=== PATIENT | female | born 1980 | race Caucasian/White ===

== ENCOUNTER 2016-05-11 18:15 | Emergency (ER) | payer OTHER ==
--- NOTE | 2016-05-11 19:19 | ERNOTE ---
<Iain Cody - Last Filed: 05/11/16 20:07> Lower Extremity HPI - Narrative Date of Service: 05/11/16 - General Lower Extremities Pain: thigh: right - inner thigh pain Time Seen by Provider: 05/11/16 19:03 Source: patient - Immun/Allergies/Home Medications Immunizations: IMMUNIZATION HX Immunizations Up to Date Yes History of Influenza Vaccine Yes Hx Pneumococcal Vaccination No Allergies/Adverse Reactions: Allergies Allergy/AdvReac Type Severity Reaction Status Date / Time latex Allergy Intermediate Hives Verified 05/11/16 18:27 oxycodone HCl [From Percocet] AdvReac Intermediate Vomiting Verified 05/11/16 18 :27 sulfamethoxazole AdvReac Hives Verified 05/11/16 18:27 [From Bactrim] trimethoprim [From Bactrim] AdvReac Hives Verified 05/11/16 18:27 Home Medications: HOME MEDICATIONS Citalopram Hydrobromide [Citalopram HBr] 20 mg PO DAILY 05/11/16 [Last Taken Unknown] Clindamycin HCl [Cleocin HCl] 300 mg PO TID #30 capsule 05/11/16 [Last Taken Unknown] HYDROcodone/ACETAMINOPHEN [[place] 5-325] 1 - 2 tab PO Q6H PRN #12 tab 05/11/16 [ Last Taken Unknown] Hydroxyzine HCl 50 mg PO DAILY 05/11/16 [Last Taken Unknown] Ibuprofen [Motrin] 800 mg PO TID PRN #30 tab 05/11/16 [Last Taken Unknown] - History of Present Illness Narrative: Presents with c/o pain to her right medial thigh. Pain exacerbated by ambulation. Denies any recent injury. Pt also c/o of a small cyst on anterior aspect of her neck. 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 Occurred: other - None Associated Symptoms: Reports: none. Denies: snapping, popping sensation, dizzy/ light headedness, headache, weakness, sensory loss, chest pain, vomiting/ diarrhea, bowel/bladder problems Other Injuries: Reports: none Review of Systems - Review of Systems Constitutional: Present: no symptoms reported EYE: Present: no symptoms reported ENT: Present: no symptoms reported Respiratory: Present: no symptoms reported Cardiology: Present: no symptoms reported Gastrointestinal/Abdominal: Present: no symptoms reported Genitourinary: Present: no symptoms reported Musculoskeletal: Present: See HPI Skin: Present: See HPI Neurological: Present: no symptoms reported Endocrine: Present: no symptoms reported Hematologic/Lymphatic: Present: no symptoms reported Psych: Present: no symptoms reported All Other Systems: All systems neg except as marked - Patient's Past Medical History Patient History - Medical: No pertinent hx, Kidney stone Patient History - Cardiac/Respiratory: No pertinent hx Patient History - Cancer: No Hx of Cancer Patient History - Surgical Procedures: Tubal Ligation, Other Patient History - Other: None LMP (Calendar): 11/13/15 - Family History Father Family History - Medical: , No pertinent hx - Social History Living Situations: home Abuse History: No History of abuse Psych History: No pertinent hx Does anyone smoke in the home?: Yes Smoking Status: Current every day smoker Patient requests Smoking Cessation Consult: No Initiate information on Smoking Cessation: No Alcohol Use: none Drug Use: none - Immunizations Immunizations Up to Date: Yes Hx Pneumococcal Vaccination: No History of Influenza Vaccine: Yes Physical Exam - Physical Exam General Appearance: Present: wd/wn, alert, no apparent distress Ears, Nose, Throat: Present: normal ENT inspection Neck: Present: normal inspection, nontender, other - Small (1 cm diameter) dermal inclusion cyst on superior/anterior aspect of her neck. TTP; no erythema , not fluctuant. . Absent: lymphadenopathy (R), lymphadenopathy (L) Respiratory: Present: no respiratory distress, normal breath sounds, no accessory muscle use, chest nontender, lungs clear Cardiovascular/Chest: Present: regular rate, rhythm, no murmur Extremity Exam: Present: normal except -, other - TTP of medial aspect of right thigh, extending towards her groin. Pain elicited with ROM of right hip. Neurological Exam: Present: alert, oriented, normal mood/affect Skin Exam: Present: normal color, warm/dry, other - Inclusion cyst on anterior neck. ED Progress - Results and Orders Patient's Lab Results:: I have reviewed the patient's lab results. - Vital Signs Patient's Vital Signs:: I have reviewed the patient's vital signs. Vital Signs: Vital Signs 05/11/16 18:23 Temperature 37 C Pulse Rate 88 Respiratory 18 Rate Blood Pressure 142/88 O2 Sat by Pulse 98 Oximetry - Progress/Reassessment Chief Complaint: Lower Extremity Pain/ Injury - Transfer of Care Physician Sign Out: Iain Cody Receiving Physician: Ira Zhu Pending Results: Labs Expected Disposition: Discharge Departure Clinical Impression: EIC (epidermal inclusion cyst) Cellulitis Qualifiers: Site of cellulitis: neck Qualified Code(s): L03.221 - Cellulitis of neck - Departure Disposition: Home self-care Condition: Good Prescriptions: Clindamycin HCl [Cleocin HCl] 300 mg PO TID #30 capsule HYDROcodone/ACETAMINOPHEN [[place] 5-325] 1 - 2 tab PO Q6H PRN #12 tab PRN Reason: Pain Ibuprofen [Motrin] 800 mg PO TID PRN #30 tab PRN Reason: Pain <Ira Zhu - Last Filed: 05/11/16 21:02> Lower Extremity HPI - Immun/Allergies/Home Medications Immunizations: IMMUNIZATION HX Immunizations Up to Date Yes History of Influenza Vaccine Yes Hx Pneumococcal Vaccination No - Family History Father Family History - Medical: , No pertinent hx ED Progress - Date and Time Seen: Date and Time: 05/11/16 20:51 By the time I arrived to patient's bedside, she had already been seen by previous provider. patient was upset in the exam room as she had not been given any pain medication. I evaluated the patient and based on my exam the patient has a right groin pull. she was also complaining of pain in the area under her chin. She stated "I've had MRSA and it's starting under my chin again". By my exam she does have a firm, tender nodule in the submental region with a skin lesion with a scab in that same corresponding region. Area is not red or hot but there is a nodule and it is tender and the patient does have a history of MRSA. - Vital Signs Vital Signs: Vital Signs 05/11/16 05/11/16 05/11/16 18:23 19:28 20:23 Temperature 37 C 37.2 C Pulse Rate 88 73 76 Respiratory 18 18 18 Rate Blood Pressure 142/88 102/60 100/61 O2 Sat by Pulse 98 96 94 Oximetry Plan - Plan Plan: will treat for right groin pull and for MRSA cellulitis of submental area
--- OUTSIDE RECORDS SUMMARY | 2016-05-11 19:29 | XMS REPORT | Continuity of Care Document ---
:1980 Author Organization [facility] ([facility]) Address [address] [place] [address] Phone [phone] Care Team Providers Name Role Phone Lavell Quevedo Primary Care Provider [phone] Source Comments This disclosure is being made pursuant to the Care Everywhere program, applicable federal and state laws, and may not contain all informaitonavailable regarding this patient.[facility] ([facility]) Active Allergies and Adverse Reactions Allergen Noted Date Severity Reactions Comments Latex, Natural Rubber Respiratory Distress,Urticaria (Hives),Angioedema Current Medications Prescription Sig. Disp. Refills Start Date End Date Status ibuprofen 800 mg tablet Take 800 mg by mouth Active every 8 hours as needed for Pain. Active Problems Not on file Social History Tobacco Use Types Packs/Day Years Used Date Current Every Day Smoker Cigarettes 1 10 Smokeless Tobacco: Never Used Tobacco Cessation:Ready to Quit: Yes; Counseling Given: Yes Comments: Alcohol Use Drinks/Week oz/Week Comments No Last Filed Vital Signs Vital Sign Reading Time Taken Blood Pressure 108/60 08/01/2015 1:05 PM CDT Pulse 67 08/01/2015 1:05 PM CDT Temperature 36.8 C (98.2 F) 08/01/2015 1:05 PM CDT Respiratory Rate - - Height 1.702 m (5' 7") 08/01/2015 1:05 PM CDT Weight 80.85 kg (178 lb 3.9 oz) 08/01/2015 1:05 PM CDT Body Mass Index 27.91 08/01/2015 1:05 PM CDT Oxygen Saturation - - Plan of Care Health Maintenance Due Date Last Done Comments Hepatitis B Vaccine (1 of 3 - Primary Series) 1980 Tdap Vaccine 08/08/1991 Lipid Disorder Screening 1998 MMR Vaccine 1998 Td Vaccine 1998 Varicella Vaccine (1 of 2 - Adult - No Evidence of 1998 Immunity) Pneumococcal Vaccine (1 of 1 - PPSV23) 08/08/1999 Cervical Cancer Screening 2010 Influenza Vaccine: Seasonal (#1) 09/26/2015 Results from Last 3 Months Not on file
[2016-05-11 19:31] LABS: Hematocrit 39.7 % (37.0-47.0); Hemoglobin 13.4 gm/dL (12.5-16.0); Mean Cell Volume 83.4 fl (78-100); Mean Corpuscular Hemoglobin 28.2 pg (27-31); Mean Corpuscular Hgb Conc 33.8 g/dl (32-36); Mean Platelet Volume 11.3 fl (6.0-9.5); Neutrophil # 4.1 K/mm3 (1.3-6.0); Neutrophil % 67.3 % (42-75.0); Platelet Count 196 K/mm3 (150-450); Red Blood Count 4.76 M/mm3 (4.2-5.4); Red Cell Distribution Width 12.9 % (11.5-14.0); White Blood Count 6.1 K/mm3 (4.0-10.5)
[2016-05-11 19:42] LABS: Albumin * 3.7 gm/dl (3.4-5.0); Anion Gap 14.9 mmol/L (6.8-13.8); BUN/Creatinine Ratio 12.1 (9.0-21.6); Bilirubin, Total 0.3 mg/dL (0.0-1.1); Ca. Corrected For Albumin 8.7 mg/dL (8.4-10.2); Calcium * 8.8 mg/dL (7.9-10.9); Carbon Dioxide 25.1 mmol/L (24-32.6); Total Protein 7.2 gm/dL (6.2-8.2)
[2016-05-11 20:23] VITALS: BP 100/61
[2016-05-11] MEDS ORDERED: KETOROLAC TROMETHAMINE 60 MG/2 ML VIAL IM ONE ×2 (20:48)
[2016-05-11] MEDS ORDERED: CLINDAMYCIN HCL 150 MG CAPSULE PO ONE (20:49)
[2016-05-11] MEDS ORDERED: CLINDAMYCIN HCL 150 MG CAPSULE ONE (20:50)
== END 2016-05-11 21:05 | disposition home or self-care (01) ==
LOC: ER 18:15
DX: L72.0 Epidermal cyst (principal); L03.221 Cellulitis of neck; Z72.0 Tobacco use

== ENCOUNTER 2016-06-09 16:56 | Emergency (ER) | payer OTHER ==
[2016-06-09 17:06] VITALS: BP 161/93
[2016-06-09] MEDS ORDERED: KETOROLAC TROMETHAMINE 60 MG/2 ML VIAL IM ONE ×2 (17:24→17:33)
--- OUTSIDE RECORDS SUMMARY | 2016-06-09 17:33 | XMS REPORT | Continuity of Care Document ---
:1980 Author Organization [facility] ([facility]) Address [address] [place] [address] Phone [phone] Care Team Providers Name Role Phone Lavell Quevedo Primary Care Provider [phone] Source Comments This disclosure is being made pursuant to the Care Everywhere program, applicable federal and state laws, and may not contain all informaitonavailable regarding this patient.[facility] ([facility]) Active Allergies and Adverse Reactions Allergen Noted [...]
--- NOTE | 2016-06-09 17:38 | ERNOTE ---
Lower Extremity HPI - Narrative Date of Service: 06/09/16 - General Lower Extremities Pain: other: right - Groin Time Seen by Provider: 06/09/16 17:15 Source: patient, old records, other - [facility] database Exam Limitations: no limitations - Immun/Allergies/Home Medications Immunizations: IMMUNIZATION HX Immunizations Up to Date Yes History of Influenza Vaccine No Hx Pneumococcal Vaccination No Allergies/Adverse Reactions: Allergies Allergy/AdvReac Type Severity Reaction Status Date / Time latex Allergy Intermediate Hives Verified 06/09/16 17:07 oxycodone HCl [From Percocet] AdvReac Intermediate Vomiting Verified 06/09/16 17 :07 sulfamethoxazole AdvReac Hives Verified 06/09/16 17:07 [From Bactrim] trimethoprim [From Bactrim] AdvReac Hives Verified 06/09/16 17:07 Home Medications: HOME MEDICATIONS Hydroxyzine HCl 50 mg PO DAILY 05/11/16 [Last Taken Unknown] Doxycycline Hyclate [Morgidox] 100 mg PO BID 06/09/16 [Last Taken Unknown] Ibuprofen 800 mg PO TID PRN #60 tablet 06/09/16 [Last Taken Unknown] - History of Present Illness Narrative: 35 y/o female ambulatory to the ED for pain in her right groin. This began over a year ago, but was exacerbated today when she was running from a snake. She has been here several times for this. She reports having an ultrasound recently at [facility] that showed a fluid collection in her groin. She is scheduled to see Dr. Kearns for this in 2 weeks. She has already seen several different specialists who seem to have told her that the fluid should reabsorb and not require surgical intervention. She reports that she is usually "pretty much on bedrest" because of this ongoing issue, but was out mushroom hunting today. Subsequent Symptoms: Denies: sensory loss, numbness, motor loss Prior Treament: Reports: similar symptoms before Review of Systems - Review of Systems Constitutional: Absent: recent illness, fever, chills EYE: Present: no symptoms reported ENT: Present: no symptoms reported Respiratory: Present: no symptoms reported Cardiology: Absent: chest pain, edema, claudication Gastrointestinal/Abdominal: Present: no symptoms reported Genitourinary: Present: no symptoms reported Musculoskeletal: Present: muscle pain. Absent: joint pain, joint swelling Skin: Absent: rash, lesions, lumps, change in color Neurological: Present: tingling. Absent: weakness, numbness Endocrine: Present: no symptoms reported Hematologic/Lymphatic: Present: no symptoms reported Psych: Present: no symptoms reported - Patient's Past Medical History Patient History - Medical: Anxiety, Kidney stone, Migraines Patient History - Cardiac/Respiratory: No pertinent hx Patient History - Cancer: No Hx of Cancer Patient History - Surgical Procedures: Tubal Ligation Patient History - Other: None - Family History Father Family History - Medical: , No pertinent hx - Social History Living Situations: home Abuse History: No History of abuse Psych History: No pertinent hx Does anyone smoke in the home?: Yes Smoking Status: Current every day smoker Have you smoked in the past 12 months: Yes Alcohol Use: occasionally Drug Use: none - Immunizations Immunizations Up to Date: Yes Hx Pneumococcal Vaccination: No History of Influenza Vaccine: No Physical Exam - Physical Exam General Appearance: Present: wd/wn, alert, no apparent distress, obese Respiratory: Present: no respiratory distress, no accessory muscle use Cardiovascular/Chest: Present: normal peripheral pulses Peripheral Pulses: N=norm/S=strong/W=weak/B=bound/A=absent: Dorsalis-pedis (R): Strong Extremity Exam: Present: no edema, decreased range of motion - right hip - painful, other - tenderness with palpation of right anterior groin. Absent: calf tenderness, bony tenderness Neurological Exam: Present: alert, oriented, normal mood/affect, no motor/ sensory deficits Skin Exam: Present: normal color, warm/dry, other - no palpable mass in right groin ED Progress - Vital Signs Patient's Vital Signs:: I have reviewed the patient's vital signs. Vital Signs: Vital Signs 06/09/16 17:01 Temperature 36.7 C Pulse Rate 87 Respiratory 16 Rate Blood Pressure 161/93 O2 Sat by Pulse 99 Oximetry - Progress/Reassessment Chief Complaint: Lower Extremity Pain/ Injury Progress:: Improved Departure Clinical Impression: Strain of groin Qualifiers: Encounter type: initial encounter Laterality: right Qualified Code(s): S76.211A - Strain of adductor muscle, fascia and tendon of right thigh, initial encounter - Departure Disposition: Home Follow Up Needed Condition: Stable Instructions: Muscle Strain, [id number] Additional Instructions: Ice to sore area as needed Take ibuprofen with food See Dr. De La Cruz as scheduled Prescriptions: Ibuprofen 800 mg PO TID PRN #60 tablet PRN Reason: Pain
== END 2016-06-09 17:45 | disposition home or self-care (01) ==
LOC: ER 16:56
DX: S76.211A Strain of adductor muscle, fascia and tendon of right thigh, initial encounter (principal); X58.XXXA Exposure to other specified factors, initial encounter; Y93.89 Activity, other specified; Y92.9 Unspecified place or not applicable; Y99.8 Other external cause status; Z72.0 Tobacco use

== ENCOUNTER 2016-06-16 19:24 | Emergency (ER) | payer OTHER ==
--- OUTSIDE RECORDS SUMMARY | 2016-06-16 22:10 | XMS REPORT | Continuity of Care Document ---
:1980 Author Organization [facility] ([facility]) Address [address] [place] [address] Phone [phone] Care Team Providers Name Role Phone Laevll Quveedo Primary Care Provider [phone] Source Comments This disclosure is being made pursuant to the Care Everywhere program, applicable federal and state laws, and may not contain all informaitonavailable regarding this patient.[facility] ([facility]) Active Allergies and Adverse Reactions Allergen [...]
[2016-06-16] MEDS ORDERED: IBUPROFEN 400 MG TABLET PO ONE (22:12)
[2016-06-16] MEDS ORDERED: diphenhydrAMINE HCL 50 MG/ML VIAL IM ONE (22:13)
[2016-06-16] MEDS ORDERED: diphenhydrAMINE HCL 50 MG/ML VIAL ONE (22:17)
[2016-06-16] MEDS ORDERED: IBUPROFEN 400 MG TABLET ONE (22:17)
--- NOTE | 2016-06-16 22:19 | ERNOTE ---
Lower Extremity HPI - General Lower Extremities Pain: hip: right Time Seen by Provider: 06/16/16 22:04 Source: patient Exam Limitations: no limitations - Immun/Allergies/Home Medications Immunizations: IMMUNIZATION HX Immunizations Up to Date Yes History of Influenza Vaccine No Hx Pneumococcal Vaccination No Allergies/Adverse Reactions: Allergies Allergy/AdvReac Type Severity Reaction Status Date / Time latex Allergy Intermediate Hives Verified 06/09/16 17:07 oxycodone HCl [From Percocet] AdvReac Intermediate Vomiting Verified 06/09/16 17 :07 ketorolac [From Toradol] AdvReac Vomiting Verified 06/16/16 19:49 sulfamethoxazole AdvReac Hives Verified 06/09/16 17:07 [From Bactrim] trimethoprim [From Bactrim] AdvReac Hives Verified 06/09/16 17:07 Home Medications: HOME MEDICATIONS Hydroxyzine HCl 50 mg PO DAILY 05/11/16 [Last Taken Unknown] Doxycycline Hyclate [Morgidox] 100 mg PO BID 06/09/16 [Last Taken Unknown] Ibuprofen 800 mg PO TID PRN #60 tablet 06/09/16 [Last Taken Unknown] - History of Present Illness Narrative: Patient has had recurrent problems with her right groin for about a year.She has seen multiple specialist and 'they won't do anything'. A CT about a year ago showed a lesion inher groin. She has an MRI ordered for Saturday (two days). About three hours ago while getting out of her truck she started to have worse pain again and is worries that she won't be able to sleep to night because of the pain. She is taking ibuprofen 800mg for it last dose this morning Review of Systems - Review of Systems Constitutional: Absent: recent illness, fever ENT: Absent: nose pain, nose congestion Respiratory: Absent: shortness of breath Cardiology: Absent: chest pain Gastrointestinal/Abdominal: Absent: nausea, vomiting Musculoskeletal: Present: See HPI Neurological: Absent: weakness, numbness - Patient's Past Medical History Patient History - Medical: Anxiety, Kidney stone, Migraines Patient History - Cardiac/Respiratory: No pertinent hx Patient History - Cancer: No Hx of Cancer Patient History - Surgical Procedures: Tubal Ligation Patient History - Other: None - Family History Father Family History - Medical: , No pertinent hx - Social History Living Situations: home Abuse History: No History of abuse Psych History: Hx of Anxiety Does anyone smoke in the home?: Yes Smoking Status: Current every day smoker Have you smoked in the past 12 months: Yes Alcohol Use: occasionally Drug Use: none - Immunizations Immunizations Up to Date: Yes Hx Pneumococcal Vaccination: No History of Influenza Vaccine: No Physical Exam - Physical Exam General Appearance: Present: wd/wn, alert, mild distress Respiratory: Present: no respiratory distress, normal breath sounds Cardiovascular/Chest: Present: regular rate, rhythm, no murmur Extremity Exam: Present: other - right groin tender medially over femoral artery and vein, pain on rotation of hip Neurological Exam: Present: alert, oriented, normal mood/affect, no motor/ sensory deficits Skin Exam: Present: normal color, warm/dry ED Progress - Vital Signs Patient's Vital Signs:: I have reviewed the patient's vital signs. Vital Signs: Vital Signs 06/16/16 19:50 Temperature 36.7 C Pulse Rate 103 H Respiratory 16 Rate Blood Pressure 114/67 O2 Sat by Pulse 97 Oximetry - Progress/Reassessment Chief Complaint: Lower Extremity Pain/ Injury Progress Note-Subjective: 06/16/16 22:16 discussed plan, patient is essentially here for pain medication, offered toradol , patient states that she can't tolerate it, explained that I can't give her narcotic medications for chronic pain. Since her concern was sleeping will treat with po ibuprofen (last dose this am) and IM benadryl Departure Clinical Impression: Groin pain, chronic, right - Departure Disposition: Home self-care Condition: Good Instructions: Adductor Muscle Strain Additional Instructions: take ibuprofen as scheduled, follow up for your MRI as scheduled on Saturday Referrals: Dillon Kearns MD [Primary Care Provider] -
[2016-06-16 22:29] VITALS: BP 110/62
== END 2016-06-16 22:27 | disposition home or self-care (01) ==
LOC: ER 19:24
DX: R10.31 Right lower quadrant pain (principal); G89.29 Other chronic pain; Z87.442 Personal history of urinary calculi; F17.210 Nicotine dependence, cigarettes, uncomplicated

== ENCOUNTER 2016-07-08 19:13 | Emergency (ER) | payer OTHER ==
[2016-07-08 19:21] VITALS: BP 142/98
[2016-07-08] MEDS ORDERED: CYCLOBENZAPRINE HCL 10 MG TABLET PO ONE (20:02)
[2016-07-08] MEDS ORDERED: CYCLOBENZAPRINE HCL 10 MG TABLET ONE ×2 (20:07→20:09)
--- OUTSIDE RECORDS SUMMARY | 2016-07-08 20:08 | XMS REPORT | Continuity of Care Document ---
:1980 Author Organization [facility] ([facility]) Address [address] [place] [address] Phone [phone] Care Team Providers Name Role Phone Lavell Quevedo Primary Care Provider [phone] Source Comments This disclosure is being made pursuant to the Care Everywhere program, applicable federal and state laws, and may not contain all informaitonavailable regarding this patient.[facility] ([facility]) Active Allergies and Adverse Reactions Allergen Noted [...]
--- NOTE | 2016-07-08 20:26 | ERNOTE ---
Back Pain ER HPI Date of Service: 07/08/16 Presenting Symptoms: injury/pain to back Time Seen by Provider: 07/08/16 19:52 Source: patient, RN notes reviewed, past records, other - [facility] database Exam Limitations: no limitations Immunizations: IMMUNIZATION HX Immunizations Up to Date Yes History of Influenza Vaccine Yes Hx Pneumococcal Vaccination Yes Allergies/Adverse Reactions: Allergies latex Allergy (Intermediate, Verified 07/08/16 19:22) Hives oxycodone HCl [From Percocet] Adverse Reaction (Intermediate, Verified 07/08/16 19:22) Vomiting ketorolac [From Toradol] Adverse Reaction (Verified 07/08/16 19:22) Vomiting sulfamethoxazole [From Bactrim] Adverse Reaction (Verified 07/08/16 19:22) Hives trimethoprim [From Bactrim] Adverse Reaction (Verified 07/08/16 19:22) Hives Home Medications: HOME MEDICATIONS Hydroxyzine HCl 50 mg PO DAILY 05/11/16 [Last Taken Unknown] Doxycycline Hyclate [Morgidox] 100 mg PO BID 06/09/16 [Last Taken Unknown] Ibuprofen 800 mg PO TID PRN #60 tablet 06/09/16 [Last Taken Unknown] Cyclobenzaprine HCl [Flexeril] 10 mg PO TID PRN #16 tab 07/08/16 [Last Taken Unknown] Lurasidone HCl [Latuda] 20 mg PO DAILY 07/08/16 [Last Taken Unknown] Narrative: 35 y/o female brought to the ED by her for pain in her coccyx that was present on awakening today. She denies any injury. She has taken ibuprofen for pain without improvement. She reports that her pain is so severe that she cannot do anything - but then states that she is bedridden due to her chronic pain anyway. She was seen here twice in the past month for chronic pain related to a mass in her groin. On review of her pharmacy records, she was then seen at [facility] 2 days later and received [place]. Date (Duration): 07/08/16 Location of pain: Reports: lower back, no radiation Activities at Onset: Reports: sleep Recent Injury?: Reports: no Modifying Factors - (Improves): Reports: nothing Modifying Factors - (Worsens): Reports: upright position Associated Symptoms: Reports: difficulty walking. Denies: fever/chills, sweating, constipation/incontinence, nausea/vomiting, problems urinating, numbess/weakness in legs Prior Treament: Reports: recently seen, similar symptoms before Review of Systems - Review of Systems Constitutional: Absent: fever, chills EYE: Present: no symptoms reported ENT: Present: no symptoms reported Respiratory: Absent: shortness of breath, cough Cardiology: Absent: chest pain, edema Gastrointestinal/Abdominal: Absent: nausea, abdominal pain Genitourinary: Absent: dysuria, hematuria Musculoskeletal: Present: back pain, muscle pain, muscle stiffness, joint pain Skin: Absent: rash, lesions, lumps Neurological: Absent: weakness, numbness, tingling Endocrine: Present: no symptoms reported Hematologic/Lymphatic: Present: no symptoms reported Psych: Present: no symptoms reported - Patient's Past Medical History Patient History - Medical: Anxiety, Kidney stone, Migraines Patient History - Cardiac/Respiratory: No pertinent hx Patient History - Cancer: No Hx of Cancer Patient History - Surgical Procedures: Tubal Ligation Patient History - Other: None LMP (females 10-50): tubal - Family History Father Family History - Medical: , No pertinent hx - Social History Living Situations: home Abuse History: Hx of Substance Use Psych History: Hx of Anxiety Does anyone smoke in the home?: Yes Smoking Status: Current every day smoker Alcohol Use: occasionally Drug Use: none - Immunizations Immunizations Up to Date: Yes Hx Pneumococcal Vaccination: Yes History of Influenza Vaccine: Yes Physical Exam - Physical Exam General Appearance: Present: wd/wn, alert, no apparent distress, other - disheveled, appears older than reported age Neck: Present: normal inspection, nontender, supple Respiratory: Present: no respiratory distress, normal breath sounds, no accessory muscle use, lungs clear Cardiovascular/Chest: Present: regular rate, rhythm, no murmur, normal peripheral pulses Back Exam: Present: no CVA tenderness, other - winces and jumps with light palpation of any part of sacral/coccyx region. Absent: muscle spasm Extremity Exam: Present: normal inspection, normal range of motion, no edema, other - normal strength against resistance in lower extremities, dorsiflexes great toes Neurological Exam: Present: alert, oriented, normal mood/affect, no motor/ sensory deficits Skin Exam: Present: normal color, warm/dry ED Progress - Vital Signs Patient's Vital Signs:: I have reviewed the patient's vital signs. Vital Signs: Vital Signs 07/08/16 19:14 Temperature 36.8 C Pulse Rate 90 Respiratory 14 Rate Blood Pressure 142/98 O2 Sat by Pulse 98 Oximetry - Progress/Reassessment Chief Complaint: Back Pain Progress:: Unchanged Departure Clinical Impression: Coccyalgia - Departure Disposition: Home Follow Up Needed Condition: Stable Instructions: Back Pain, Adult, [id number] Additional Instructions: Continue ibuprofen Follow up with your doctor as needed Prescriptions: Cyclobenzaprine HCl [Flexeril] 10 mg PO TID PRN #16 tab PRN Reason: MUSCLE SPASMS
== END 2016-07-08 20:12 | disposition home or self-care (01) ==
LOC: ER 19:13
DX: M53.3 Sacrococcygeal disorders, not elsewhere classified (principal); Z72.0 Tobacco use; F41.9 Anxiety disorder, unspecified

== ENCOUNTER 2016-08-16 20:12 | Emergency (ER) | payer OTHER ==
[2016-08-16] MEDS ORDERED: ONDANSETRON HCL/PF 2 MG/ML VIAL IV ONE (20:29)
[2016-08-16] MEDS ORDERED: NORMAL SALINE 2,000 ML IV ONE (20:29)
[2016-08-16] MEDS ORDERED: ONDANSETRON HCL/PF 2 MG/ML VIAL ONE (20:30)
--- NOTE | 2016-08-16 20:38 | ERNOTE ---
Medical Problem HPI - Narrative Date of Service: 08/16/16 - General Chief Complaint: Nausea/Vomiting Time Seen by Provider: 08/16/16 20:25 Source: patient Exam Limitations: no limitations - Immun/Allergies/Home Medications Immunizations: IMMUNIZATION HX Immunizations Up to Date Yes History of Influenza Vaccine Yes Hx Pneumococcal Vaccination Yes Allergies/Adverse Reactions: Allergies latex Allergy (Intermediate, Verified 08/16/16 20:21) Hives oxycodone HCl [From Percocet] Adverse Reaction (Intermediate, Verified 08/16/16 20:21) Vomiting ketorolac [From Toradol] Adverse Reaction (Verified 08/16/16 20:21) Vomiting sulfamethoxazole [From Bactrim] Adverse Reaction (Verified 08/16/16 20:21) Hives trimethoprim [From Bactrim] Adverse Reaction (Verified 08/16/16 20:21) Hives Home Medications: HOME MEDICATIONS Hydroxyzine HCl 50 mg PO PRN 05/11/16 [Last Taken Unknown] Doxycycline Hyclate [Morgidox] 100 mg PO BID 06/09/16 [Last Taken Unknown] Ibuprofen 800 mg PO TID PRN #60 tablet 06/09/16 [Last Taken Unknown] Lurasidone HCl [Latuda] 40 mg PO DAILY 07/08/16 [Last Taken Unknown] Omeprazole 40 mg PO DAILY 08/16/16 [Last Taken Unknown] Ondansetron HCl [Zofran] 4 mg PO QID PRN #10 tablet 08/16/16 [Last Taken Unknown ] - History of Present History Narrative: 36 year old that started a bowel prep last night using Miralax and Ducolax; in preparation for a upper and lower GI endoscopy to be done tomorrow. She has not eaten or drank anything today. Experienced several episodes of vomiting and diarrhea. No fevers, chills or abdominal pain. Presented to the ED today due to a syncopal episode while using the toilet. No current complaints of pain at this time, but continues to have nausea. Time (Timing): 20:34 Timing: constant Severity: moderate, severe Modifying Factors - (Improves): Present: other - none Modifying Factors - (Worsens): Present: other - none Review of Systems - Review of Systems Constitutional: Present: no symptoms reported EYE: Present: no symptoms reported ENT: Present: no symptoms reported Respiratory: Present: no symptoms reported Cardiology: Present: no symptoms reported Gastrointestinal/Abdominal: Present: nausea, vomiting Genitourinary: Present: no symptoms reported Musculoskeletal: Present: no symptoms reported Skin: Present: no symptoms reported Neurological: Present: no symptoms reported Endocrine: Present: no symptoms reported Hematologic/Lymphatic: Present: no symptoms reported All Other Systems: All systems neg except as marked - Patient's Past Medical History Patient History - Medical: Anxiety, Kidney stone, Migraines Patient History - Cardiac/Respiratory: No pertinent hx Patient History - Cancer: No Hx of Cancer Patient History - Surgical Procedures: Tubal Ligation Patient History - Other: None LMP (females 10-50): 1 month - Family History Father Family History - Medical: , No pertinent hx - Social History Living Situations: spouse Abuse History: Hx of Substance Use Psych History: Hx of Anxiety Does anyone smoke in the home?: Yes Smoking Status: Current every day smoker Alcohol Use: occasionally Drug Use: none - Immunizations Immunizations Up to Date: Yes Hx Pneumococcal Vaccination: Yes History of Influenza Vaccine: Yes Physical Exam - Physical Exam General Appearance: Present: no apparent distress Eye Exam: Normal inspection: bilateral, PERRL: bilateral Ears, Nose, Throat: Present: normal ENT inspection, dry mucous membranes Neck: Present: normal inspection Respiratory: Present: no respiratory distress Cardiovascular/Chest: Present: tachycardia Gastrointestinal/Abdominal: Present: nontender, nondistended, soft, no organomegaly Back Exam: Present: normal inspection Extremity Exam: Present: normal inspection Neurological Exam: Present: alert, oriented, normal mood/affect Skin Exam: Present: normal color ED Progress - Results and Orders Patient's Lab Results:: I have reviewed the patient's lab results. - Vital Signs Patient's Vital Signs:: I have reviewed the patient's vital signs. Vital Signs: Vital Signs 08/16/16 20:15 Temperature 36.3 C L Blood Pressure 102/57 O2 Sat by Pulse 98 Oximetry - EKG EKG read: Reviewed by me EKG Comments: sinus tachycardia, rate 105, normal axis - Progress/Reassessment Chief Complaint: Nausea/Vomiting Progress:: Improved Progress Note-Subjective: 08/16/16 22:53 Now able to drink fluids and feels much better. Ambulating without difficulty. Two liters of NS were given. 08/16/16 22:54 Departure - Departure Clinical Impression: Gastroenteritis Disposition: Home self-care Condition: Good Instructions: Rehydration, Adult Print Language: Serbian Prescriptions: Ondansetron HCl [Zofran] 4 mg PO QID PRN #10 tablet PRN Reason: Vomiting
[2016-08-16 21:13] LABS: Anion Gap 15.3 mmol/L (6.8-13.8); BUN/Creatinine Ratio 9.1 (9.0-21.6); Blood Urea Nitrogen 10 mg/dL (3-23); Calcium * 10.1 mg/dL (7.9-10.9); Carbon Dioxide 25.4 mmol/L (24-32.6); Chloride 99 mmol/L (97-106); Glucose * 129 mg/dL (70-110); Potassium 3.7 mmol/L (3.4-4.6); Sodium 136 mmol/L (132-142); Troponin I Less than 0.017 ng/ml (0.00-0.10)
[2016-08-16 22:29] VITALS: BP 108/54
--- OUTSIDE RECORDS SUMMARY | 2016-08-16 23:40 | XMS REPORT | Summary of Care ---
:1980 Author Organization [facility] Address [address] [place] [address]- Care Team Providers Name Role Phone [facility], [facility] Primary Care Physician Unavailable Encounter Date(s): 07/21/15 - 07/21/15 [facility] [address] [place], [place] [address] Final: Right lower quadrant pain Discharge Disposition: Discharged to Home or Self Care Attending Physician: Silvio Jewell DO Admitting Physician: Silvio Jewell DO Vital Signs No data available for this section Problem List Condition Effective Dates Status Health Status Informant Abdominal pain(Confirmed) Active Migraines(Confirmed) Active patient Pain in the groin(Confirmed) Active Allergies, Adverse Reactions, Alerts Substance Reaction Severity Status Bactrim rash Active Latex unknown Active Percocet 10 RASH Severe Active Tomatoes unk Active Medications Atarax 25 mg oral tablet 1 tab(s), Oral, QID, PRN as needed for itching, # 20 tab(s), 0 Refill(s), Start Date: 01/24/15 17:31:00 [employer]CR[employer] Start Date: 01/24/15 Stop Date: 05/06/15 Status: CompletedBactrim DS 800 mg-160 mg oral tablet 1 tab(s), Oral, BID, X 5 days, # 10 tab(s), 0 Refill(s) Start Date: 06/17/13 Stop Date: 06/22/13 Status: CompletedBactrim DS 800 mg-160 mg oral tablet 1 tab(s), Oral, BID, X 7 days, # 14 tab(s), 0 Refill(s), Start Date: 01/21/14 15 :03:00 [employer]ING SECRETARY Start Date: 01/21/14 Stop Date: 01/28/14 Status: CompletedBactrim DS 800 mg-160 mg oral tablet 1 tab(s), Oral, BID, X 7 days, # 14 tab(s), 0 Refill(s), Start Date: 02/21/14 16 :15:00 TYPING SECRETARY Start Date: 02/21/14 Stop Date: 02/28/14 Status: Completedclindamycin 300 mg oral capsule 1 cap(s), Oral, q8hr interval, # 21 cap(s), 0 Refill(s), Start Date: 05/17/15 17 :55:00 CDT Start Date: 05/17/15 Stop Date: 05/25/15 Status: Completedcyclobenzaprine 10 mg oral tablet 1 tab(s), Oral, TID, PRN for spasm, # 30 tab(s), 0 Refill(s), Start Date: 16:10:00 CDT Start Date: 06/21/15 Status: OrderedDilaudid 2 mg oral tablet 1 tab(s), Oral, q4hr, PRN for pain, # 2 tab(s), 0 Refill(s), Start Date: 17:56:00 CDT Start Date: 05/17/15 Stop Date: 06/21/15 Status: CompletedDilaudid 2 mg oral tablet 1 tab(s), Oral, q4hr, PRN for pain, Do not work or drive with this medication, # 12 tab(s), 0 Refill(s), Start Date: 06/21/15 18:32:00 CDT Special Instructions: Do not work or drive with this medication Start Date: 06/21/15 Status: OrderedDilaudid 2 mg oral tablet 1 tab(s), Oral, q8hr interval, PRN for pain, # 12 tab(s), 0 Refill(s), Start Date: 05/15/15 21:20:00 CDT Start Date: 05/15/15 Stop Date: 06/21/15 Status: CompletedDilaudid 2 mg oral tablet 1 tab(s), Oral, q4hr, PRN for pain, # 12 tab(s), 0 Refill(s), Start Date: 21:57:00 CDT Start Date: 07/15/15 Stop Date: 07/17/15 Status: OrderedDilaudid 2 mg oral tablet 1 tab(s), Oral, q6hr interval, PRN for pain, Do not work or drive with this medication, # 20 tab(s), 0 Refill(s), Start Date: 08/20/15 17:00:00 CDT Special Instructions: Do not work or drive with this medication Start Date: 08/20/15 Status: Ordereddoxycycline hyclate 150 mg oral delayed release tablet 1 tab(s), Oral, BID, # 14 tab(s), 0 Refill(s), Start Date: 04/29/14 21:25:00 [employer]ING SECR[employer]ARY Start Date: 04/29/14 Stop Date: 01/05/15 Status: Completedgabapentin 300 mg oral capsule 1 cap(s), Oral, BID, # 60 cap(s), 0 Refill(s), Start Date: 06/21/15 16:09:00 CDT Start Date: 06/21/15 Status: OrderedHYDROcodone-acetaminophen 5 mg-325 mg oral tablet 2 tab(s), Oral, q6hr, PRN for pain, # 12 tab(s), 0 Refill(s), Start Date: 20:33:00 [employer]ING SECR[employer]ARY Start Date: 12/27/13 Stop Date: 12/30/13 Status: Completedibuprofen 600 mg oral tablet 1 tab(s), Oral, QID, PRN for pain, # 40 tab(s), 0 Refill(s), Start Date: 20:33:00 [employer]YPING SECR[employer]ARY Start Date: 12/27/13 Stop Date: 04/29/14 Status: Completedibuprofen 600 mg oral tablet 1 tab(s), Oral, q6hr, PRN pain moderate 4-7, # 40 tab(s), 0 Refill(s), Start Date: 08/20/15 17:01:00 CDT Start Date: 08/20/15 Status: Orderedibuprofen 800 mg oral tablet 1 tab(s), Oral, TID, PRN for pain, # 30 tab(s), 0 Refill(s), Start Date: 13:01:00 TYPING SECRETARY Start Date: 01/23/15 Stop Date: 05/06/15 Status: CompletedKeflex 500 mg oral capsule 1 cap(s), Oral, QID, # 20 cap(s), 0 Refill(s) Start Date: 10/13/13 Stop Date: 04/29/14 Status: CompletedKeflex 500 mg oral capsule 1 cap(s), Oral, q12hr, # 20 cap(s), 0 Refill(s), Start Date: 01/23/15 13:01:00 TYPING SECRETARY Start Date: 01/23/15 Stop Date: 04/06/15 Status: CompletedKeflex 500 mg oral capsule 1 cap(s), Oral, QID, # 28 cap(s), 0 Refill(s), Start Date: 01/21/14 15:03:00 TYPING SECRETARY Start Date: 01/21/14 Stop Date: 04/29/14 Status: CompletedNorco 5 mg-325 mg oral tablet 1 tab(s), Oral, q4hr, X 5 days, # 30 tab(s), 0 Refill(s), Start Date: 05/20/15 14:57:00 CDT, Pharmacy: [facility] [id number] Start Date: 05/20/15 Stop Date: 05/25/15 Status: Completednortriptyline 10 mg oral capsule 2 cap(s), Oral, HS, 1 qhs X 5 days then increase to 2 qhs, # 60 cap(s), 0 Refill (s), Start Date: 05/25/15 13:27:00 CDT, Pharmacy: [facility] [id number] Special Instructions: 1 qhs X 5 days then increase to 2 qhs Start Date: 05/25/15 Status: OrderedpredniSONE 20 mg oral tablet 2 tab(s), Oral, Daily, # 4 tab(s), 0 Refill(s), Start Date: 01/24/15 17:31:00 TYPING SECRETARY Start Date: 01/24/15 Stop Date: 04/06/15 Status: CompletedpredniSONE 20 mg oral tablet 1 tab(s), Oral, Daily, # 5 tab(s), 0 Refill(s), Start Date: 05/15/15 21:20:00 CDT Start Date: 05/15/15 Stop Date: 05/25/15 Status: CompletedSeptra DS 800 mg-160 mg oral tablet 2 tab(s), Oral, BID, X 10 days, # 40 tab(s), 0 Refill(s), Start Date: 01/23/15 13:01:00 TYPING SECRETARY Start Date: 01/23/15 Stop Date: 02/02/15 Status: CompletedtraMADol Oral, 0 Refill(s), Start Date: 12/27/13 20:02:00 TYPING SECRETARY Start Date: 12/27/13 Stop Date: 04/29/14 Status: CompletedtraMADol 50 mg oral tablet 1 tab(s), Oral, q4hr, PRN for pain, # 20 tab(s), 0 Refill(s), Start Date: 21:25:00 TYPING SECRETARY Start Date: 04/29/14 Stop Date: 01/05/15 Status: CompletedValium 10 mg oral tablet 1 tab(s), Oral, TID, PRN soreness, Do not work or drive with this medication, # 12 tab(s), 0 Refill(s), Start Date: 08/20/15 17:01:00 CDT Special Instructions: Do not work or drive with this medication Start Date: 08/20/15 Status: OrderedVicodin 5 mg-300 mg oral tablet 1 tab(s), Oral, q6hr interval, X 7 days, # 12 tab(s), 0 Refill(s) Start Date: 06/17/13 Stop Date: 06/24/13 Status: CompletedVicodin 5 mg-325 mg oral tablet 1-2, Oral, q4hr, X 5 days, # 15 tab(s), 0 Refill(s) Start Date: 10/13/13 Stop Date: 10/18/13 Status: Completed Results No data available for this section Immunizations No data available for this section Procedures Procedure Date Related Diagnosis Body Site Lithotripsy Skin graft to extremity1 Skin graft to extremity2 Tubal ligation 1right [id number] arm Social History No data available for this section Assessment and Plan No data available for this section
--- OUTSIDE RECORDS SUMMARY | 2016-08-16 23:40 | XMS REPORT | Summary of Care ---
:1980 Author Organization [facility] Address [address] [place] [address]- Care Team Providers Name Role Phone [facility], [facility] Primary Care Physician Unavailable Encounter Date(s): 07/21/15 - 07/21/15 [facility] [address] [place], [place] [address] Final: Right lower quadrant pain Discharge Disposition: [...] tab(s), 0 Refill(s), Start Date: 01/24/15 17:31:00 [employer] Start Date: 01/24/15 Stop Date: 05/06/15 Status: CompletedBactrim DS 800 mg-160 mg oral tablet 1 tab(s), Oral, BID, X 5 days, # 10 tab(s), 0 Refill(s) Start Date: 06/17/13 Stop Date: 06/22/13 Status: CompletedBactrim DS 800 mg-160 mg oral tablet 1 tab(s), Oral, BID, X 7 days, # 14 tab(s), 0 Refill(s), Start Date: 01/21/14 15 :03:00 [employer] Start Date: 01/21/14 Stop Date: 01/28/14 Status: CompletedBactrim DS 800 mg-160 mg oral tablet 1 tab(s), Oral, BID, X 7 days, # 14 tab(s), 0 Refill(s), Start Date: 02/21/14 16 :15:00 [employer] Start Date: 02/21/14 Stop Date: 02/28/14 Status: [...] tab(s), 0 Refill(s), Start Date: 04/29/14 21:25:00 [employer] Start Date: 04/29/14 Stop Date: 01/05/15 Status: Completedgabapentin 300 mg oral capsule 1 cap(s), Oral, BID, # 60 cap(s), 0 Refill(s), Start Date: 06/21/15 16:09:00 CDT Start Date: 06/21/15 Status: OrderedHYDROcodone-acetaminophen 5 mg-325 mg oral tablet 2 tab(s), Oral, q6hr, PRN for pain, # 12 tab(s), 0 Refill(s), Start Date: 20:33:00 [employer] Start Date: 12/27/13 Stop Date: 12/30/13 Status: Completedibuprofen 600 mg oral tablet 1 tab(s), Oral, QID, PRN for pain, # 40 tab(s), 0 Refill(s), Start Date: 20:33:00 [employer] Start Date: 12/27/13 Stop Date: 04/29/14 Status: Completedibuprofen 600 mg oral tablet 1 tab(s), Oral, q6hr, PRN pain moderate 4-7, # 40 tab(s), 0 Refill(s), Start Date: 08/20/15 17:01:00 CDT Start Date: 08/20/15 Status: Orderedibuprofen 800 mg oral tablet 1 tab(s), Oral, TID, PRN for pain, # 30 tab(s), 0 Refill(s), Start Date: 13:01:00 [employer] Start Date: 01/23/15 Stop Date: 05/06/15 Status: CompletedKeflex 500 mg oral capsule 1 cap(s), Oral, QID, # 20 cap(s), 0 Refill(s) Start Date: 10/13/13 Stop Date: 04/29/14 Status: CompletedKeflex 500 mg oral capsule 1 cap(s), Oral, q12hr, # 20 cap(s), 0 Refill(s), Start Date: 01/23/15 13:01:00 [employer] Start Date: 01/23/15 Stop Date: 04/06/15 Status: CompletedKeflex 500 mg oral capsule 1 cap(s), Oral, QID, # 28 cap(s), 0 Refill(s), Start Date: 01/21/14 15:03:00 [employer] Start Date: 01/21/14 Stop Date: 04/29/14 Status: CompletedNorco 5 mg-325 mg oral tablet 1 tab(s), Oral, q4hr, X 5 days, # 30 tab(s), 0 Refill(s), Start Date: 05/20/15 14:57:00 CDT, Pharmacy: [facility] [id number] Start Date: 05/20/15 Stop Date: 05/25/15 Status: Completednortriptyline 10 mg oral capsule 2 cap(s), Oral, HS, 1 qhs X 5 days then increase to 2 qhs, # 60 cap(s), 0 Refill (s), Start Date: 05/25/15 13:27:00 CDT, Pharmacy: [facility] [id number] Special Instructions: 1 qhs X 5 days then increase to 2 qhs Start Date: 05/25/15 Status: OrderedpredniSONE 20 mg oral tablet 2 tab(s), Oral, Daily, # 4 tab(s), 0 Refill(s), Start Date: 01/24/15 17:31:00 [employer] Start Date: 01/24/15 Stop Date: 04/06/15 Status: CompletedpredniSONE 20 mg oral tablet 1 tab(s), Oral, Daily, # 5 tab(s), 0 Refill(s), Start Date: 05/15/15 21:20:00 CDT Start Date: 05/15/15 Stop Date: 05/25/15 Status: CompletedSeptra DS 800 mg-160 mg oral tablet 2 tab(s), Oral, BID, X 10 days, # 40 tab(s), 0 Refill(s), Start Date: 01/23/15 13:01:00 [employer] Start Date: 01/23/15 Stop Date: 02/02/15 Status: CompletedtraMADol Oral, 0 Refill(s), Start Date: 12/27/13 20:02:00 [employer] Start Date: 12/27/13 Stop Date: 04/29/14 Status: CompletedtraMADol 50 mg oral tablet 1 tab(s), Oral, q4hr, PRN for pain, # 20 tab(s), 0 Refill(s), Start Date: 21:25:00 [employer] Start Date: 04/29/14 Stop Date: 01/05/15 Status: [...] Skin graft to extremity2 Tubal ligation 1right [id number] arm Social History No data available for this section Assessment and Plan No data available for this section
== END 2016-08-16 22:55 | disposition home or self-care (01) ==
LOC: ER 20:12
DX: K52.9 Noninfective gastroenteritis and colitis, unspecified (principal); Z87.442 Personal history of urinary calculi; F17.200 Nicotine dependence, unspecified, uncomplicated
CPT/HCPCS: 36415; 80048; 84484; 96374; 99284; G0481; J2405